=== PATIENT | female | born 1985 | race Caucasian/White ===

== ENCOUNTER → 2020-11-01 11:47 | Outpatient (BNVA) | payer OTHER, SELFPAY | PROVIDERS: PCP Internal Medicine; Referring Provider Internal Medicine; Visit Provider Obstetrics & Gynecology | DX: Z76.89 Persons encountering health services in other specified circumstances (principal) ==

== ENCOUNTER → 2021-01-02 11:12 | Outpatient (BNVA) | payer BC, SELFPAY | PROVIDERS: PCP Internal Medicine; Visit Provider Obstetrics & Gynecology ==

== ENCOUNTER → 2021-01-22 11:55 | Outpatient (BNVA) | payer BC, SELFPAY | PROVIDERS: PCP Internal Medicine; Visit Provider Physician Assistant ==

== ENCOUNTER 2021-01-24 06:01 | Outpatient (REF) | payer BC, OTHER, SELFPAY ==
[2021-01-24 11:07] LABS: MANUAL DIFF FLAG NO
[2021-01-24 11:25] LABS: Basophils Percent Auto 0.5 % (0-2); Eosinophils Absolute Auto 0.2 X10*3/uL (0.0-0.4); Eosinophils Percent Auto 3.3 % (0-4); Hematocrit 42.1 % (37-47); Hemoglobin 13.8 g/dl (12.0-16.0); Imm Gran Abs Auto 0.02 X10*3/uL (0.00-0.03); Imm Gran Pct Auto 0.3 % (0.0-0.4); Lymphocytes Absolute Auto 1.8 X10*3/uL (1.2-4.9); Lymphocytes Percent Auto 28.2 % (20-40); Mean Corpuscular HGB Conc 32.8 g/dl (31.0-35.0); Mean Corpuscular Hemoglobin 29.2 pg (27.0-33.0); Monocytes Absolute Auto 0.3 X10*3/uL (0.1-1.2); Monocytes Percent Auto 5.1 % (2-11); Neutrophils Percent Auto 62.6 % (45-73); Platelet Count 328 X10*3/uL (160-400); Red Blood Count 4.73 X10*6/uL (4.20-5.50); Red Cell Distribution Width 12.9 % (11.0-16.0); White Blood Count 6.5 X10*3/uL (4.8-10.8)
[2021-01-24 11:56] LABS: Alanine Aminotransferase 21 U/L (0-31); Albumin Level 4.4 g/dL (3.5-5.0); Alkaline Phosphatase 63 U/L (39-117); Anion Gap 12 (12-20); Aspartate Amino Transferase 16 U/L (5-31); Bilirubin Total 1.1 mg/dL (0.0-1.0); Blood Urea Nitrogen 12 mg/dL (9-16); C Reactive Protein 0.44 mg/dL (< or = 0.50); Calcium 9.1 mg/dL (8.4-10.2); Carbon Dioxide 27 mmol/L (22-29); Chloride 105 mmol/L (96-108); Estimated Glomerular Filt Rate > 60; Glucose Random 96 mg/dL (60-115); Potassium 4.4 mmol/L (3.3-5.1); Sodium 140 mmol/L (135-145); Total Protein 6.9 g/dL (6.5-8.0)
[2021-01-24 12:18] LABS: Thyroid Stimulating Hormone 1.18 uIU/mL (0.32-4.0)
[2021-01-24 12:32] LABS: Erythrocyte Sedimentation Rate 10 MM/HR (0-20)
[2021-01-25 12:52] LABS: Transglutaminase IgA 1 U/mL
[2021-01-30 23:26] LABS: Calprotectin, Fecal 25 mcg/g
[2021-01-31 15:46] LABS: Endomysial IgA Antibody Negative (Negative)
== END 2021-01-24 06:02 | disposition home or self-care (01) ==
LOC: HO.HMGCLDS 06:01
PROVIDERS: PCP Internal Medicine; Visit Provider Physician Assistant
DX: K58.2 Mixed irritable bowel syndrome (principal); R74.01 Elevation of levels of liver transaminase levels; R10.11 Right upper quadrant pain
CPT/HCPCS: 36415; 80053; 83516; 83993; 84443; 85025; 85652; 86140; 86255; 86256

== ENCOUNTER → 2021-02-26 11:12 | Outpatient (BNVA) | payer BC, SELFPAY | PROVIDERS: PCP Internal Medicine; Visit Provider Physician Assistant ==

== ENCOUNTER 2022-07-27 06:49 | Outpatient (REF) | payer BC, SELFPAY ==
[2022-07-27 11:13] LABS: MANUAL DIFF FLAG NO
[2022-07-27 11:18] LABS: Basophils Percent Auto 0.4 % (0-2); Eosinophils Absolute Auto 0.1 X10*3/uL (0.0-0.4); Eosinophils Percent Auto 1.5 % (0-4); Hematocrit 39.8 % (37.0-47.0); Hemoglobin 13.6 g/dl (12.0-16.0); Imm Gran Abs Auto 0.02 X10*3/uL (0.00-0.03); Imm Gran Pct Auto 0.3 % (0.0-0.4); Lymphocytes Absolute Auto 1.8 X10*3/uL (1.2-4.9); Lymphocytes Percent Auto 22.4 % (20-40); Mean Corpuscular HGB Conc 34.2 g/dl (31.0-35.0); Mean Corpuscular Volume 87.7 fL (80.0-98.0); Mean Platelet Volume 11.1 fL (9.4-12.3); Monocytes Absolute Auto 0.4 X10*3/uL (0.1-1.2); Monocytes Percent Auto 4.5 % (2-11); Neutrophils Absolute Auto 5.6 x10*3/uL (2.0-8.3); Neutrophils Percent Auto 70.9 % (45-73); Platelet Count 328 X10*3/uL (160-400); Red Blood Count 4.54 X10*6/uL (4.20-5.50); Red Cell Distribution Width 12.8 % (11.0-16.0)
[2022-07-27 11:37] LABS: Estimated Average Glucose 94 mg/dL; Hemoglobin A1c % 4.9 %
[2022-07-27 11:52] LABS: Alanine Aminotransferase 16 U/L (0-31); Albumin Level 4.3 g/dL (3.5-5.0); Alkaline Phosphatase 67 U/L (39-117); Anion Gap 14 (12-20); Aspartate Amino Transferase 14 U/L (5-31); Bilirubin Total 0.9 mg/dL (0.0-1.0); Blood Urea Nitrogen 12 mg/dL (9-16); Calcium 9.2 mg/dL (8.4-10.2); Carbon Dioxide 21 mmol/L (22-29); Chloride 108 mmol/L (96-108); Cholesterol 172 mg/dL; Estimated Glomerular Filt Rate > 60; Glucose Fasting 110 mg/dL (60-99); HDL Cholesterol 46 mg/dL; LDL Cholesterol Calculated 112 mg/dl; Potassium 4.4 mmol/L (3.3-5.1); Sodium 139 mmol/L (135-145); Triglycerides 73 mg/dL
[2022-07-27 11:57] LABS: TSH reflex Free T4 0.92 uIU/mL (0.32-4.0)
== END 2022-07-27 06:50 | disposition home or self-care (01) ==
LOC: HO.HMGCLDS 06:49
PROVIDERS: PCP Internal Medicine; Visit Provider Internal Medicine
DX: K58.0 Irritable bowel syndrome with diarrhea (principal); E66.09 Other obesity due to excess calories; F33.9 Major depressive disorder, recurrent, unspecified; Z86.32 Personal history of gestational diabetes
CPT/HCPCS: 36415; 80053; 80061; 83036; 84443; 85025

== ENCOUNTER 2023-01-25 07:01 | Outpatient (REF) | payer BC, SELFPAY ==
[2023-01-25 08:34] LABS: Estimated Average Glucose 97 mg/dL
[2023-01-25 08:48] LABS: Alanine Aminotransferase 10 U/L (0-31); Albumin Level 4.3 g/dL (3.5-5.0); Alkaline Phosphatase 62 U/L (39-117); Anion Gap 15 (12-20); Aspartate Amino Transferase 12 U/L (5-31); Bilirubin Total 0.8 mg/dL (0.0-1.0); Blood Urea Nitrogen 13 mg/dL (9-16); Calcium 9.5 mg/dL (8.4-10.2); Carbon Dioxide 25 mmol/L (22-29); Chloride 107 mmol/L (96-108); Estimated Glomerular Filt Rate > 60; Glucose Fasting 91 mg/dL (60-99); Potassium 4.5 mmol/L (3.3-5.1); Sodium 142 mmol/L (135-145); Total Protein 6.6 g/dL (6.5-8.0)
== END 2023-01-25 07:02 | disposition home or self-care (01) ==
LOC: HO.LAB 07:01
PROVIDERS: PCP Internal Medicine; Visit Provider Internal Medicine
DX: E66.09 Other obesity due to excess calories (principal); R73.03 Prediabetes
CPT/HCPCS: 36415; 80053; 83036

== ENCOUNTER 2023-08-15 10:38 | Outpatient (AMB) | payer MEDICAID, SELFPAY ==
--- NOTE | 2023-08-15 10:39 | MHC.PC.OV ---
Vital Signs 08/15/23 10:40 Height 5 ft 4 in Weight 160 lb 8 oz BMI 27.5 BP 114/70 Blood Pressure Location Lt brachial Position Sitting Pulse 60 Pulse Source Pulse Oximeter Pulse Oximetry (%) 100 Oxygen Delivery Method Room Air Intake Visit Reasons: PE Allergies honey [Honey] Allergy (Mild, Verified 08/15/23 10:40) RASH mustard [Mustard] Allergy (Mild, Verified 08/15/23 10:40) RASH pineapple [PINEAPPLE] Allergy (Mild, Verified 08/15/23 10:40) ITCHY MOUTH cashews Allergy (Unknown, Uncoded 08/07/22 10:35) hives Medication List - Last Reconciled 08/15/23 by Carmine Henry MD cholecalciferol (vitamin D3) 25 mcg PO DAILY dicyclomine 10 mg PO TID PRN 30 days multivitamin (Daily Multi-Vitamin tablet) 1 tab PO DAILY Tobacco use date assessed: 08/15/23 Dental Screening Dental Screen Date: 08/15/23 Did you have a dental visit in the last 12 months?: Yes Did you have a dental problem in the last 6 months where you did not have access to dental care?: No Was dental information given to patient?: Patient has dentist HPI PE HPI Details Patient is 38-year-old female came in today for physical exam Patient has stop taking Lexapro that she was taking for depression, patient says as since the diet for she has moved on and is feeling better she does not need the medication anymore. IBS: Stable with dicyclomine as needed. Patient does not want to see the OBGYN she does want to get a Pap smear and she declined a breast exam as well. Lab order please, patient have a history of impaired fasting sugar I have added hemoglobin A1c to the labs. Follow-up next year for physical examination. [facility] Medical History Abdominal cramping Depression, major, recurrent Lack of libido Dysfunctional uterine bleeding Depression, major, recurrent Surgical History No pertinent past surgical history Family History Father Unknown family medical history Mother Unknown family medical history History of hip replacement Maternal Grandfather Alzheimer's disease Dementia Stroke Maternal Grandmother Diabetes mellitus Paternal Grandfather Cancer Paternal Grandmother Alzheimer's disease Dementia Diabetes mellitus Brother No problems noted. Brother No problems noted. Sister No problems noted. Sister No problems noted. Sister No problems noted. Daughter No problems noted. Daughter No problems noted. Daughter No problems noted. Daughter No problems noted. Social History Household Members: Spouse and Children Household Members Other:: 4 daughters- 2-12 Housing: House Alcohol intake: current Alcohol intake frequency: holidays/special occasions only Patient Tobacco Use Status: Never used Tobacco e-Cigarette/Vaping Use: Never Used service: No Current occupational status: employed Current occupation: explosives truck driver Current occupational exposures/hazards: No Sexual orientation: Straight/Heterosexual Gender identity: Female Cognitive needs: No Hearing needs: No Vision needs: No Questionnaire PHQ-9 Over the last 2 weeks, how often have you been bothered by any of the following problems? 1. Little interest or pleasure in doing things: several days 2. Feeling down, depressed, or hopeless: not at all 3. Trouble falling or staying asleep, or sleeping too much: nearly every day 4. Feeling tired or having little energy: nearly every day 5. Poor appetite or overeating: more than half the days 6. Feeling bad about yourself - or that you are a failure or have let yourself or your family down: several days 7. Trouble concentrating on things, such as reading the newspaper or watching television: not at all 8. Moving or speaking so slowly that other people could have noticed. Or the opposite - being so fidgety or restless that you have been moving around a lot more than usual: not at all 9. Thoughts that you would be better off or of hurting yourself in some way: not at all Total score: 10 Depression Screening Interpretation: Negative 62418 - PHQ-9 Billing: Yes Source: Developed by Drs. Jesus Davis, Jessica Vazquez, Bhupinder Gonzalez and colleagues, with an educational hui from [employer]. Thrive Questionnaire Date Thrive assessed: 08/15/23 I am a: Patient What is your living situation today?: I have a steady place to live Within the past 12 months, did the food you bought not last and you didn't have the money to get more?: Sometimes True Within the past 12 months, did you worry whether your food would run out before you got money to buy more?: Sometimes True Do you have trouble paying for medicines?: No Do you have trouble getting transportation to medical appointments?: No Do you have trouble paying your heating and electricity bill?: No Do you have trouble taking care of your child, family member or friend?: No Do you have trouble with day-to-day activities such as bathing, preparing meals, shopping, managing finances, etc.?: No Are you currently unemployed and looking for a job?: No Are you interested in more education?: No AUDIT C Alcohol Use Questionnaire (AUDIT-C) 1. How often do you have a drink containing alcohol?: Never 3. How often do you have six or more drinks on one occasion?: Never Total Score: 0 Score Reviewed/Action Taken: Yes WILBERT-7 AMB Questionnaire WILBERT-7 Date WILBERT - 7 assessed: 08/15/23 Feeling nervous, anxious, or on edge: 1 = Several days Not being able to stop or control worryin = Several days Worrying too much about different things: 1 = Several days Trouble relaxin = Several days Being so restless that it is hard to sit still: 1 = Several days Becoming easily annoyed or irritable: 1 = Several days Feeling afraid as if something awful might happen: 0 = Not at all Total WILBERT-7 score (0-4 normal; 5-9 mild; 10-14 moderate; 15-21 severe): 6 Source: Developed by Drs. Jesus Davis, Jessica Vazquez, Bhupinder Gonzalez and colleagues, with an educational hui from [employer]. WILBERT-7 Assessment Billing WILBERT-7 Assessment Tool: WILBERT-7 Assessment 26819 Review of Systems Const Denies chills, Denies fever(s) and Denies headache(s) Eyes Denies blurry vision ENT Denies headache(s), Denies nasal discharge, Denies nasal obstruction, Denies odynophagia and Denies sinus pain Card Denies chest pain at rest and Denies chest pain with activity Resp Denies cough and Denies hemoptysis GI Denies diarrhea, Denies odynophagia, Denies vomiting and Denies hematemesis Reports as per HPI Musc Denies abnormal gait Skin/Breast Reports as per HPI Neuro Denies Neuro-related abnormal movements, Denies Abnormal speech present, Denies abnormal gait, Denies headache(s) and Denies Sensory deficit (Neuro) Psych Denies mood swings and Denies paranoia Endo Reports as per HPI Salvador/Lymph Reports as per HPI Aller/Immun Reports as per HPI Physical exam (Primary Care) Vital Signs: Last Vital Signs Pulse 60 08/15/23 10:40 BP 114/70 08/15/23 10:40 Pulse Ox 100 08/15/23 10:40 Oxygen Delivery Method Room Air 08/15/23 10:40 BMI result Body Mass Index 27.5 Tobacco/Smoking Status: Tobacco use Status Tobacco use date assessed 08/15/23 08/15/23 10:42 Patient Tobacco Use Status Never used Tobacco 08/15/23 10:42 e-Cigarette/Vaping Use Never Used 08/15/23 10:42 PHQ-9: PHQ-9 Score PHQ-9: Total score 10 08/15/23 11:13 Depression Screening Interpretation: Negative Thrive Assessment: Date of Thrive Assessment Date Thrive assessed 08/15/23 08/15/23 11:13 Const General: cooperative, comfortable and no acute distress Orientation/consciousness: patient oriented x3 HENMT Head: Yes normocephalic and Yes atraumatic Eyes General: appearance normal, both eyes and all related structures Pupils: Equal, round and reactive pupils present EOM: EOMs intact bilaterally Neck Neck: Yes supple and No lymphadenopathy Thyroid: Thyroid normal Lymphatic: no lymphadenopathy noted Resp Effort & Inspection: normal respiratory effort and able to speak in complete sentences Auscultation: clear to auscultation bilaterally Cardio Heart sounds: S1 normal heart sound present and S2 normal heart sound present GI Palpation (GI): Soft to palpation and nontender Auscultation: normal bowel sounds General: Yes no CVA tenderness Back/Spine/Pelvis Back: no CVA tenderness Skin General skin exam: elasticity normal and turgor normal Neuro General: patient oriented x3 and gait normal Cranial nerves: Yes Equal, round and reactive pupils present Speech: No Abnormal speech present Sensory Exam: No Sensory deficit (Neuro) Coordination: tandem gait normal and Romberg test negative Extrem General: Yes normal exam except as noted and No edema Assessment and Plan Assessment & Plan (1) Encounter for general adult medical examination with abnormal findings: Code(s): Z00.01 - Encounter for general adult medical examination with abnormal findings (2) Pre-diabetes: Code(s): R73.03 - Prediabetes (3) Irritable bowel syndrome with diarrhea: Comment: . Code(s): K58.0 - Irritable bowel syndrome with diarrhea Plan Patient is 38-year-old female came in today for physical exam Patient has stop taking Lexapro that she was taking for depression, patient says as since the diet for she has moved on and is feeling better she does not need the medication anymore. IBS: Stable with dicyclomine as needed. Patient does not want to see the OBGYN she does want to get a Pap smear and she declined a breast exam as well. Lab order please, patient have a history of impaired fasting sugar I have added hemoglobin A1c to the labs. Follow-up next year for physical examination. Orders: Orders Hemoglobin A1c Today E66.09 - Other obesity due to excess calories, K58.0 - Irritable bowel syndrome with diarrhea, R73.03 - Prediabetes, Z00.01 - Encounter for general adult medical examination with abnormal findings Comprehensive Met. Panel Today E66.09 - Other obesity due to excess calories, K58.0 - Irritable bowel syndrome with diarrhea, R73.03 - Prediabetes, Z00.01 - Encounter for general adult medical examination with abnormal findings Complete Blood Count Auto Diff Today E66.09 - Other obesity due to excess calories, K58.0 - Irritable bowel syndrome with diarrhea, R73.03 - Prediabetes, Z00.01 - Encounter for general adult medical examination with abnormal findings Coding Level of Care Code Est Pt Prev Care 18-39y(21079) Diagnoses Encounter for general adult medical examination with abnormal findings Z00.01 Pre-diabetes R73.03 Irritable bowel syndrome with diarrhea K58.0 Additional Codes WILBERT-7 Assessment Billing - WILBERT-7 Assessment Tool: WILBERT-7 Assessment [id number] ([id number])
[2023-08-15 10:40] VITALS: BP 114/70; PULSE 60; O2SAT 100; BMI 27.5
== END 2023-08-15 11:43 | disposition home or self-care (01) ==
PROVIDERS: Visit Provider Internal Medicine
DX: Z00.01 Encounter for general adult medical examination with abnormal findings (principal); R73.03 Prediabetes; K58.0 Irritable bowel syndrome with diarrhea
CPT/HCPCS: 99395

== ENCOUNTER 2023-08-15 11:12 | Outpatient (REF) | payer BC, MEDICAID, SELFPAY ==
[2023-08-15 13:11] LABS: MANUAL DIFF FLAG NO
[2023-08-15 13:32] LABS: Basophils Percent Auto 0.5 % (0-2); Eosinophils Absolute Auto 0.2 X10*3/uL (0.0-0.4); Hematocrit 39.4 % (37.0-47.0); Hemoglobin 13.4 g/dl (12.0-16.0); Imm Gran Abs Auto 0.03 X10*3/uL (0.00-0.03); Imm Gran Pct Auto 0.4 % (0.0-0.4); Lymphocytes Percent Auto 26.7 % (20-40); Mean Corpuscular Hemoglobin 30.9 pg (27.0-33.0); Mean Corpuscular Volume 90.8 fL (80.0-98.0); Mean Platelet Volume 10.6 fL (9.4-12.3); Monocytes Absolute Auto 0.4 X10*3/uL (0.1-1.2); Monocytes Percent Auto 5.9 % (2-11); Neutrophils Absolute Auto 4.8 x10*3/uL (2.0-8.3); Neutrophils Percent Auto 64.5 % (45-73); Platelet Count 348 X10*3/uL (160-400); Red Blood Count 4.34 X10*6/uL (4.20-5.50); Red Cell Distribution Width 12.4 % (11.0-16.0); White Blood Count 7.5 X10*3/uL (4.8-10.8)
[2023-08-15 14:12] LABS: Estimated Average Glucose 91 mg/dL; Hemoglobin A1c % 4.8 % (<6.0)
[2023-08-15 14:17] LABS: Alanine Aminotransferase 9 U/L (0-31); Albumin Level 4.3 g/dL (3.5-5.0); Alkaline Phosphatase 62 U/L (39-117); Anion Gap 12 (12-20); Aspartate Amino Transferase 12 U/L (5-31); Bilirubin Total 0.6 mg/dL (0.0-1.0); Blood Urea Nitrogen 8 mg/dL (9-16); Calcium 9.3 mg/dL (8.4-10.2); Carbon Dioxide 23 mmol/L (22-29); Chloride 110 mmol/L (96-108); Estimated Glomerular Filt Rate > 60; Glucose Random 108 mg/dL (60-115); Potassium 4.1 mmol/L (3.3-5.1); Sodium 141 mmol/L (135-145)
== END 2023-08-15 11:13 | disposition home or self-care (01) ==
LOC: HO.HMGCLDS 11:12
PROVIDERS: PCP Internal Medicine; Visit Provider Internal Medicine
DX: Z00.01 Encounter for general adult medical examination with abnormal findings (principal); R73.03 Prediabetes; E66.09 Other obesity due to excess calories; K58.0 Irritable bowel syndrome with diarrhea
CPT/HCPCS: 36415; 80053; 83036; 85025

== ENCOUNTER 2024-08-20 11:13 | Outpatient (AMB) | payer OTHER, SELFPAY ==
[2024-08-20 11:17] VITALS: BP 120/72; PULSE 95; O2SAT 99; BMI 29.7
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
== END 2024-08-20 13:21 | disposition home or self-care (01) ==
PROVIDERS: PCP Internal Medicine; Visit Provider Internal Medicine
DX: Z00.00 Encounter for general adult medical examination without abnormal findings (principal); K58.0 Irritable bowel syndrome with diarrhea; R73.03 Prediabetes

== ENCOUNTER → 2024-08-20 11:13 | Outpatient (BNVA) | payer OTHER, SELFPAY | PROVIDERS: PCP Internal Medicine; Visit Provider Internal Medicine | DX: Z00.01 Encounter for general adult medical examination with abnormal findings (principal); K58.0 Irritable bowel syndrome with diarrhea; R73.03 Prediabetes | CPT/HCPCS: 96127; 99395 ==

== ENCOUNTER 2024-08-21 06:35 | Outpatient (REF) | payer OTHER, SELFPAY ==
[2024-08-21 11:19] LABS: MANUAL DIFF FLAG NO
[2024-08-21 11:34] LABS: Basophils Percent Auto 0.4 % (0-2); Eosinophils Absolute Auto 0.2 X10*3/uL (0.0-0.4); Eosinophils Percent Auto 1.8 % (0-4); Hemoglobin 13.6 g/dl (12.0-16.0); Imm Gran Abs Auto 0.04 X10*3/uL (0.00-0.03); Imm Gran Pct Auto 0.5 % (0.0-0.4); Lymphocytes Absolute Auto 1.9 X10*3/uL (1.2-4.9); Lymphocytes Percent Auto 22.8 % (20-40); Mean Corpuscular HGB Conc 33.2 g/dl (31.0-35.0); Mean Corpuscular Volume 90.5 fL (80.0-98.0); Mean Platelet Volume 10.3 fL (9.4-12.3); Monocytes Absolute Auto 0.5 X10*3/uL (0.1-1.2); Monocytes Percent Auto 5.4 % (2-11); Neutrophils Absolute Auto 5.8 x10*3/uL (2.0-8.3); Neutrophils Percent Auto 69.1 % (45-73); Platelet Count 300 X10*3/uL (160-400); Red Blood Count 4.53 X10*6/uL (4.20-5.50); White Blood Count 8.3 X10*3/uL (4.8-10.8)
[2024-08-21 11:45] LABS: Alanine Aminotransferase 13 U/L (0-31); Albumin Level 4.2 g/dL (3.5-5.0); Alkaline Phosphatase 49 U/L (39-117); Anion Gap 11 (12-20); Aspartate Amino Transferase 14 U/L (5-31); Bilirubin Total 0.9 mg/dL (0.0-1.0); Blood Urea Nitrogen 8 mg/dL (9-16); Calcium 9.6 mg/dL (8.4-10.2); Carbon Dioxide 24 mmol/L (22-29); Chloride 108 mmol/L (96-108); Cholesterol 147 mg/dL (<200); Estimated Glomerular Filt Rate > 60; Glucose Fasting 98 mg/dL (60-99); HDL Cholesterol 53 mg/dL (>40); LDL Cholesterol Calculated 82 mg/dL (<100); Potassium 4.4 mmol/L (3.3-5.1); Sodium 139 mmol/L (135-145); Total Protein 6.7 g/dL (6.5-8.0); Triglycerides 64 mg/dL (<150)
== END 2024-08-21 06:36 | disposition home or self-care (01) ==
LOC: HO.HMGCLDS 06:35
PROVIDERS: PCP Internal Medicine; Visit Provider Internal Medicine
DX: Z00.00 Encounter for general adult medical examination without abnormal findings (principal); R73.03 Prediabetes; K58.0 Irritable bowel syndrome with diarrhea
CPT/HCPCS: 36415; 80053; 80061; 85025

== ENCOUNTER 2025-08-23 09:09 | Outpatient (AMB) | payer OTHER, SELFPAY ==
[2025-08-23 09:12] VITALS: BP 110/70; PULSE 72; O2SAT 100; BMI 28.5
--- NOTE | 2025-08-23 09:12 | MHC.PC.OV ---
Vital Signs 08/23/25 09:12 Height 5 ft 4 in Weight 166 lb BMI 28.5 BP 110/70 Blood Pressure Location Lt brachial Position Sitting Pulse 72 Pulse Source Pulse Oximeter Pulse Oximetry (%) 100 Oxygen Delivery Method Room Air Intake Visit Reasons: PE Allergies honey (Honey) Allergy (Mild, Verified 08/23/25 09:12) RASH mustard (Mustard) Allergy (Mild, Verified 08/23/25 09:12) RASH pineapple (PINEAPPLE) Allergy (Mild, Verified 08/23/25 09:12) ITCHY MOUTH cashews Allergy (Unknown, Uncoded 08/07/22 10:35) hives Medication List - Last Reconciled 08/23/25 by Carmine Henry MD cholecalciferol (vitamin D3) 25 mcg PO DAILY dicyclomine 10 mg PO TID PRN 30 days multivitamin (Daily Multi-Vitamin tablet) 1 tab PO DAILY Tobacco use date assessed: 08/23/25 Dental Screening Dental Screen Date: 08/23/25 Did you have a dental visit in the last 12 months?: Yes Did you have a dental problem in the last 6 months where you did not have access to dental care?: No Was dental information given to patient?: Patient has dentist HPI PE HPI Details History of Present Illness The patient is a 40-year-old female presenting with evaluation of dizziness and depressive symptoms. Symptoms of depression: - Symptoms include low mood, lack of motivation, and loss of appetite. - Noted to occur primarily on weekends when children are with their father. - Symptoms have persisted intermittently, with noted exacerbation following familial stressors such as her brother's heart surgery. History of dizziness: - Patient reports recent episodes of dizziness. - Episodes improve with ingestion of lemon water containing salt. - No associated nausea, vomiting, or diarrhea. - Blood pressure last recorded as 110/70 mmHg. Medical History: - History of depression - History of dizziness - IBS - Vit D def Social History: - Occupation: driver examiner - Family status: , children reside with father on weekends - Pets: Owns four cats, considering rehoming one due to behavioral issues - Substance use: Does not smoke, minimal alcohol consumption - Physical activity: Attempting to increase exercises such as stretching and jumping jacks Family History: - Brother recently had open-heart surgery - Potential familial heart disease, patient will provide with more information Health Maintenance - Last tetanus shot in 2018 - will think about obgyn visit Patient Instructions - Engage in physical activities such as exercises or hobbies to improve mood - Discussion about therapy as an initial treatment for depression - Continue using lemon water with salt as a remedy for dizziness - Consider laboratory work such as blood tests when fasting is possible f/u one year PE Review of Systems - General: No fever no chills - Neurological: No headaches no dizziness - Ear nose throat: No sore throat no hearing difficulty no ear pain - Cardiovascular: No syncope, no chest pain, no palpitations - Gastrointestinal: No nausea vomiting or diarrhea - Endocrine: No polyuria polydipsia no heat intolerance - Genitourinary: No dysuria - Skin: No new complaints Physical Exam General: Cooperative, healthy appearing, comfortable, no acute distress, tearful during intervew talking about her brother and children Orientation: Patient oriented x3 Head: Normal to inspection Ears: Within normal limit visually Nose: Normal external nose present Face and sinus: Normal facial exam Eyes: Appearance normal, extraocular movement intact pupils reactive Neck: Normal visual inspection and supple Respiratory: Normal respiratory effort and able to speak in complete sentences. Clear to auscultation, no stridor Cardiovascular: S1 and S2 RRR GI: Normal to inspection. Soft to palpation and nontender Skin: Turgor normal, no acute findings Neuro: Patient oriented x3, motor sensory intact, balance intact, tandem pass Extremities: Normal to inspection, ROM intact . [facility] Medical History Abdominal cramping Depression, major, recurrent Lack of libido Dysfunctional uterine bleeding Depression, major, recurrent Surgical History No pertinent past surgical history Family History Father Unknown family medical history Mother Unknown family medical history History of hip replacement Maternal Grandfather Alzheimer's disease Dementia Stroke Maternal Grandmother Diabetes mellitus Paternal Grandfather Cancer Paternal Grandmother Alzheimer's disease Dementia Diabetes mellitus Brother No problems noted. Brother No problems noted. Sister No problems noted. Sister No problems noted. Sister No problems noted. Daughter No problems noted. Daughter No problems noted. Daughter No problems noted. Daughter No problems noted. Social History Household Members: Spouse and Children Household Members Other:: 4 daughters- 2-12 Housing: House Alcohol intake: current Alcohol intake frequency: holidays/special occasions only Patient Tobacco Use Status: Never used Tobacco e-Cigarette/Vaping Use: Never Used service: No Current occupational status: employed Current occupation: driver examiner Current occupational exposures/hazards: No Sexual orientation: Straight/Heterosexual Gender identity: Female Cognitive needs: No Hearing needs: No Vision needs: No Questionnaire PHQ-9 Over the last 2 weeks, how often have you been bothered by any of the following problems? 1. Little interest or pleasure in doing things: several days 2. Feeling down, depressed, or hopeless: several days 3. Trouble falling or staying asleep, or sleeping too much: several days 4. Feeling tired or having little energy: several days 5. Poor appetite or overeating: several days 6. Feeling bad about yourself - or that you are a failure or have let yourself or your family down: several days 7. Trouble concentrating on things, such as reading the newspaper or watching television: not at all 8. Moving or speaking so slowly that other people could have noticed. Or the opposite - being so fidgety or restless that you have been moving around a lot more than usual: not at all 9. Thoughts that you would be better off or of hurting yourself in some way: not at all Total score: 6 Depression Screening Interpretation: Negative Depression Screening Done: Yes 66441 - PHQ-9 Billing: Yes Source: Developed by Drs. Jesus Davis, Jessica Vazquez, Bhupinder Gonzalez and colleagues, with an educational hui from [employer]. Thrive Questionnaire Date Thrive assessed: 08/16/25 I am a: Patient What is your living situation today?: I have a steady place to live Within the past 12 months, did the food you bought not last and you didn't have the money to get more?: Sometimes True Within the past 12 months, did you worry whether your food would run out before you got money to buy more?: Often true Do you have trouble paying for medicines?: No Do you have trouble getting transportation to medical appointments?: No Do you have trouble paying your heating and electricity bill?: No Do you have trouble taking care of your child, family member or friend?: No Do you have trouble with day-to-day activities such as bathing, preparing meals, shopping, managing finances, etc.?: No Are you currently unemployed and looking for a job?: No Are you interested in more education?: I choose not to answer this question Please select the resources that you would like help with: None THRIVE Score: 2 AUDIT C Alcohol Use Questionnaire (AUDIT-C) 1. How often do you have a drink containing alcohol?: Monthly or less 2. How many drinks containing alcohol do you have on a typical day when you are drinking?: 1 or 2 3. How often do you have six or more drinks on one occasion?: Less than monthly Total Score: 2 Score Reviewed/Action Taken: Yes WILBERT-7 AMB Questionnaire WILBERT-7 Date WILBERT - 7 assessed: 08/23/25 Feeling nervous, anxious, or on edge: 1 = Several days Not being able to stop or control worryin = Several days Worrying too much about different things: 1 = Several days Trouble relaxin = More than half the days Being so restless that it is hard to sit still: 1 = Several days Becoming easily annoyed or irritable: 1 = Several days Feeling afraid as if something awful might happen: 1 = Several days Total WILBERT-7 score (0-4 normal; 5-9 mild; 10-14 moderate; 15-21 severe): 8 Source: Developed by Drs. Jesus Davis, Jessica Vazquez, Bhupinder Gonzalez and colleagues, with an educational hui from [employer]. WILBERT-7 Assessment Billing WILBERT-7 Assessment Tool: WILBERT-7 Assessment 44357 Physical exam (Primary Care) Vital Signs: Last Vital Signs Pulse 72 08/23/25 09:12 BP 110/70 08/23/25 09:12 Pulse Ox 100 08/23/25 09:12 Oxygen Delivery Method Room Air 08/23/25 09:12 BMI result Body Mass Index 28.5 Tobacco/Smoking Status: Tobacco use Status Tobacco use date assessed 08/23/25 08/23/25 09:13 Patient Tobacco Use Status Never used Tobacco 08/23/25 09:13 e-Cigarette/Vaping Use Never Used 08/23/25 09:13 PHQ-9: PHQ-9 Score PHQ-9: Total score 6 08/23/25 09:25 Depression Screening Interpretation: Negative Thrive Assessment: Date of Thrive Assessment Date Thrive assessed 08/16/25 08/23/25 09:13 Coding Level of Care Code Est Pt Level 3 (41686) Est Pt Prev Care 18-39y(73302) Diagnoses Encounter for general adult medical examination with abnormal findings Z00.01 Mild episode of recurrent major depressive disorder F33.0 Active/Remission status: currently active Major depression episode severity: mild Irritable bowel syndrome with diarrhea K58.0 Pre-diabetes R73.03 Additional Codes WILBERT-7 Assessment Billing - WILBERT-7 Assessment Tool: WILBERT-7 Assessment 92357 ([id number]) PHQ-9 - 81677 - PHQ-9 Billing: Yes ([id number]) Assessment & Plan Assessment & Plan (1) Encounter for general adult medical examination with abnormal findings: Code(s): Z00.01 - Encounter for general adult medical examination with abnormal findings Category: Medical (2) Depression, major, recurrent: Code(s): F33.9 - Major depressive disorder, recurrent, unspecified Category: Medical Qualifiers: Active/Remission status: currently active Major depression episode severity: mild Qualified Code(s): F33.0 - Major depressive disorder, recurrent, mild (3) Irritable bowel syndrome with diarrhea: Comment: . Code(s): K58.0 - Irritable bowel syndrome with diarrhea Category: Medical (4) Pre-diabetes: Code(s): R73.03 - Prediabetes Category: Medical Plan History of Present Illness The patient is a 40-year-old female presenting with evaluation of dizziness and depressive symptoms. Symptoms of depression: - Symptoms include low mood, lack of motivation, and loss of appetite. - Noted to occur primarily on weekends when children are with their father. - Symptoms have persisted intermittently, with noted exacerbation following familial stressors such as her brother's heart surgery. History of dizziness: - Patient reports recent episodes of dizziness. - Episodes improve with ingestion of lemon water containing salt. - No associated nausea, vomiting, or diarrhea. - Blood pressure last recorded as 110/70 mmHg. Medical History: - History of depression - History of dizziness - IBS - Vit D def - Pre diabetes Social History: - Occupation: driver examiner - Family status: , children reside with father on weekends - Pets: Owns four cats, considering rehoming one due to behavioral issues - Substance use: Does not smoke, minimal alcohol consumption - Physical activity: Attempting to increase exercises such as stretching and jumping jacks Family History: - Brother recently had open-heart surgery - Potential familial heart disease, patient will provide with more information Health Maintenance - Last tetanus shot in 2018 - will think about obgyn visit Patient Instructions - Engage in physical activities such as exercises or hobbies to improve mood - Discussion about therapy as an initial treatment for depression - Continue using lemon water with salt as a remedy for dizziness - Consider laboratory work such as blood tests when fasting is possible f/u one year PE . Orders: Orders Complete Blood Count Auto Diff Today K58.0 - Irritable bowel syndrome with diarrhea, R73.03 - Prediabetes, Z00.01 - Encounter for general adult medical examination with abnormal findings Comprehensive [place]. Panel Fast Today K58.0 - Irritable bowel syndrome with diarrhea, R73.03 - Prediabetes, Z00.01 - Encounter for general adult medical examination with abnormal findings Lipid Panel Today K58.0 - Irritable bowel syndrome with diarrhea, R73.03 - Prediabetes, Z00.01 - Encounter for general adult medical examination with abnormal findings Medications: Refilled dicyclomine 10 mg PO TID PRN 90 caps 1RF Abdominal spasm 30 days
--- OUTSIDE RECORDS SUMMARY | 2025-08-23 09:55 | XMS_ITS | Clinical Summary ---
Author Organization [facility] Address [address] [place] [id number] Phone Care Team Providers Care Men'S Basketball Coach Name Role Phone Pcp, Unknown Primary Care Provider Unavailabl e Allergies Active Allergy Reactions Criticality Noted Date Comments Honey Rash Low 06/18/2014 Mustard Rash Low 06/18/2014 Pineapple Rash Low 06/18/2014 Medications multivitamins capsule as directed Active Active Problems Problem Noted Date Diagnosed Date Androgen resistance syndrome 09/25/2017 Gestational diabetes 09/25/2017 Posttraumatic stress disorder 09/25/2017 Derangement of temporomandibular joint 7 Immunizations Immunization Administration Dates Next Due Tdap 01/28/2014 Family History Medical History Relation Comments Diabetes mellitus Maternal Grandmother 2 Relation Status Comments Maternal Grandmother 1 Maternal Grandmother 2 Social History Tobacco Use Types Packs/Day Years Used Date Smoking Tobacco: Never Smokeless Tobacco: Never Alcohol Use Standard Drinks/Week Comments No 0 (1 standard drink = 0.6 oz pur e alcohol) nursing Education Answer Date Recorded Are you interested in more education? Not on ovidio e 03/21/2023 Are you concerned about learning? Not on file 03/21/2023 No 03/21/2023 No 03/21/2023 Digital Access Answer Date Recorded No 04/19/2023 No 04/19/2023 Reliable internet access at home? Not on file 04/19/2023 Device with a working camera? Not on file Comments Unknown Sex and Gender Information Value Date Recorded Sex Assigned at Not on file Legal Sex Female 10:27 PM EDT Gender Identity Not on file Sexual Orientation Not on file Last Filed Vital Signs Vital Sign Reading Time Taken Comments Blood Pressure 112/70 09/25/2017 9:55 AM EDT Pulse 60 09/25/2017 9:55 AM EDT Temperature 36.6 C (97.9 F) 09/25/2017 9:55 AM EDT Respiratory Rate - - Oxygen Saturation 98% 09/25/2017 9:55 AM EDT Inhaled Oxygen Concentration - - Weight 83.9 kg (185 lb) 09/25/2017 9:55 AM EDT Height 157.5 cm (5' 2 ) 09/25/2017 9:55 AM EDT Body Mass Index 33.84 09/25/2017 9:55 AM EDT Plan of Treatment Health Maintenance Due Date Last Done Comments HEPATITIS C SCREENING 2004 HIV ONE-TIME SCREENING (18-6 5 YEARS) 2004 PAP SMEAR 2007 SMOKING STATUS SCREENING (On ce After 26 Yrs) 2012 DEPRESSION SCREENING 09/25/2018 09/25/2017 INFLUENZA VACCINE (#1) 2025 COVID-19 VACCINE (1 - 2023-2 5 season) 2025 Adult Td,Tdap Booster 07/09/2028 07/09/2018 , 01/28/2014 HEPATITIS A VACCINES Aged Out No long er eligible based on patient's age to complete this topic HIB VACCINES Aged Out No longer eligi ble based on patient's age to complete this topic MENINGOCOCCAL VACCINES (ACWY) Aged Out No longer eligible based on patient's age to complete this topic MENINGOCOCCAL VACCINES (B) Aged Out N o longer eligible based on patient's age to complete this topic PNEUMOCOCCAL VACCINES (0-49 years) Aged Out No longer eligible b ased on patient's age to complete this topic Medical Devices Not on file Insurance [employer] PPO CIGNA PPO CIGNA PPO Member Subscriber Plan / Payer (Ef fective 2017-Present) Name:Aura Lei Relation to Subscriber:Spouse Name:MARGO LEI Date of :1988 (Home) Address: [address] [place] [address] Payer ID:[id number] (NA) Type:PPO Address: [address] [place] [phone] [employer] PPO Member Subscriber Plan / Payer (Ef fective 2017-Present) Name:Aura Lei Relation to Subscriber:Spouse Name:MARGO LEI Date of :1988 (Home) Address: [address] [place] [address] Payer ID:[id number] (NAIC) Type:PPO Address: [address] [place] [id number] [employer] PPO Member Subscriber Plan / Payer ( fective 2017-Present) Name:Aura Lei Relation to Subscriber:Spouse Name:MARGO LEI Date of :1988 (Home) Address: [address] [place] [address] Payer ID:[id number] (NAIC) Type:PPO Address: [address] [place] [phone] CIGNA PPO CIGNA PPO CIGNA PPO CIGNA PPO Member Subscriber Plan / Payer (Ef fective 2017-Present) Name:Aura Lei Relation to Subscriber:Spouse Name:MARGO LEI Date of :1988 (Home) Address: [address] [place] [address] Payer ID:[id number] (NAIC) Type:[facility] Address: [facility] [address] [place] [phone] Care Teams Men'S Basketball Coach Relationship Specialty Start Date End Date Pcp, Unknown PCP - General 06/24/22 Additional Source Comments The information contained in this document represents components of the legal health record. It is not the complete legal health record.[facility]
== END 2025-08-23 09:59 | disposition home or self-care (01) ==
LOC: HO.HMCC 09:10
PROVIDERS: PCP Internal Medicine; Visit Provider Internal Medicine
DX: Z00.01 Encounter for general adult medical examination with abnormal findings (principal); F33.0 Major depressive disorder, recurrent, mild; K58.0 Irritable bowel syndrome with diarrhea; R73.03 Prediabetes

== ENCOUNTER → 2025-08-23 09:09 | Outpatient (BNVA) | payer OTHER, SELFPAY | PROVIDERS: PCP Internal Medicine; Visit Provider Internal Medicine | DX: Z00.01 Encounter for general adult medical examination with abnormal findings (principal); F33.0 Major depressive disorder, recurrent, mild; K58.0 Irritable bowel syndrome with diarrhea; R73.03 Prediabetes | CPT/HCPCS: 96127; 99395 ==

== ENCOUNTER 2025-08-25 09:01 | Outpatient (REF) | payer OTHER, SELFPAY ==
--- OUTSIDE RECORDS SUMMARY | 2025-08-25 09:47 | XMS_ITS | Clinical Summary ---
Author Organization [facility] Address [address] [place] [address] Phone Care Team Providers Care Purchasing Expeditor Name Role Phone Pcp, Unknown Primary Care [...] Name:MARGO LEI Date of :1987 (Home) Address: [address] [place] [address] Payer ID:[id number] (NA) Type:PPO Address: [address] [place] [phone] [employer]IG[employer] PPO Member Subscriber Plan / Payer (Ef fective 2017-Present) Name:Aura Lei Relation to Subscriber:Spouse Name:MARGO LEI Date of :1988 (Home) Address: [address] [place] [address] Payer ID:[id number] (NAIC) Type:PPO Address: [address] [place] [id number] [employer] PPO Member Subscriber Plan / Payer ( fective 2017-Present) Name:Aura Lei Relation to Subscriber:Spouse Name:MARGO LEI Date of :1988 (Home) Address: [address] [place] [address] Payer ID:[id number] (NAIC) Type:PPO Address: [address] [place] [id number] CIGNA PPO CIGNA PPO CIGNA PPO CIGNA PPO Member Subscriber Plan / Payer (Ef fective 2017-Present) Name:Aura Lei Relation to Subscriber:Spouse Name:MARGO LEI Date of :1988 (Home) Address: [address] [place] [address] Payer ID:[id number] (NAIC) Type:[facility] Address: [facility] [address] [place] [phone] Care Teams Purchasing Expeditor Relationship Specialty Start Date End Date Pcp, Unknown PCP - General 06/24/22 Additional Source Comments The information contained in this document represents components of the legal health record. It is not the complete legal health record.[facility]
[2025-08-25 10:17] LABS: MANUAL DIFF FLAG NO
[2025-08-25 10:28] LABS: Hematocrit 37.0 % (37.0-47.0); Hemoglobin 13.1 g/dl (12.0-16.0); Imm Gran Abs Auto 0.04 X10*3/uL (0.00-0.03); Imm Gran Pct Auto 0.5 % (0.0-0.4); Lymphocytes Absolute Auto 1.8 X10*3/uL (1.2-4.9); Mean Corpuscular HGB Conc 35.4 g/dl (31.0-35.0); Mean Corpuscular Hemoglobin 30.4 pg (27.0-33.0); Mean Corpuscular Volume 85.8 fL (80.0-98.0); NRBC Abs Auto 0.000 X10*3/uL (0.0-0.012); NRBC Pct Auto 0.0 /100WBC (0.0-0.2); Platelet Count 283 X10*3/uL (160-400); Red Blood Count 4.31 X10*6/uL (4.20-5.50); White Blood Count 8.1 X10*3/uL (4.8-10.8)
[2025-08-25 11:30] LABS: Alanine Aminotransferase 12 U/L (0-31); Albumin Level 4.3 g/dL (3.5-5.0); Alkaline Phosphatase 53 U/L (39-117); Anion Gap 9 (12-20); Aspartate Amino Transferase 18 U/L (5-31); Blood Urea Nitrogen 10 mg/dL (9-16); Calcium 8.7 mg/dL (8.4-10.2); Carbon Dioxide 25 mmol/L (22-29); Chloride 110 mmol/L (96-108); Cholesterol 139 mg/dL (<200); Estimated Glomerular Filt Rate > 60; HDL Cholesterol 48 mg/dL (>40); Potassium 4.2 mmol/L (3.3-5.1); Sodium 140 mmol/L (135-145); Total Protein 6.7 g/dL (6.5-8.0); Triglycerides 36 mg/dL (<150)
== END 2025-08-25 09:02 | disposition home or self-care (01) ==
LOC: HO.HMGCLDS 09:01
PROVIDERS: PCP Internal Medicine; Visit Provider Internal Medicine
DX: Z00.01 Encounter for general adult medical examination with abnormal findings (principal); K58.0 Irritable bowel syndrome with diarrhea; R73.03 Prediabetes
CPT/HCPCS: 36415; 80053; 80061; 85025